=== PATIENT | male | born 1995 | race Caucasian/White ===

== ENCOUNTER 2024-01-18 09:17 | Emergency (ER) | payer MEDICAID ==
[~2024-01-18] VITALS: Ht 175.3 cm; Wt 89.4 kg
[2024-01-18 09:41] VITALS: BP 121/66; PULSE 68; RESP 20; TEMP 97.3; O2SAT 99
[2024-01-18] MEDS: LIDOCAINE 2% 1000 MG/50 ML VIAL INJ ONE (10:19)
== END 2024-01-18 11:43 | disposition home or self-care (01) ==
LOC: MED 09:17
DX: L72.3 Sebaceous cyst (principal)
CPT/HCPCS: 10060; 99284; J2001